=== PATIENT | male | born 1960 | race Caucasian/White ===

== ENCOUNTER 2023-11-27 14:25 | Emergency (ER) | payer OTHER, SELFPAY ==
[2023-11-27] VITALS (9 sets, daily range): BP systolic 79–132; BP diastolic 49–88; PULSE 71–78; RESP 14–15; O2SAT 96–100
--- NOTE | 2023-11-27 14:27 | XR_ITS ---
WS: [id number] PORTABLE CHEST HISTORY: Syncope COMPARISON: None available. Lungs are clear and well expanded. No pleural effusion or pneumothorax. Cardiac size: Normal. Mediastinum/Aorta: Normal mediastinum. No osseous abnormality seen. IMPRESSION: Unremarkable portable chest.
--- NOTE | 2023-11-27 14:27 | CT_ITS ---
WS: [id number] CT HEAD NONCONTRAST HISTORY: Syncope TECHNIQUE: Contiguous axial imaging performed through the brain in 2.5 mm imaging. Bone and soft tiss ue windows. Sagittal and coronal reformats reviewed. All CT scans at [facility] use at least one of these dose optimization techniques: automated exposure control; mA and/or kV adjustment per pa tient size (includes targeted exams where dose is matched to clinical indication); or iterative recon struction. DLP: 1095.48 mGy.cm COMPARISON: None available. No acute intracranial hemorrhage, midline shift or mass effect. Mild volume loss and atrophy. No prior infarct. Ventricles: Normal size with no hydrocephalus. Paranasal sinuses: As visualized are clear. Mastoid air cells: Well pneumatized. Calvarium and scalp: Skull is intact with no soft tissue edema or swelling. IMPRESSION: 1. No acute intracranial hemorrhage or edema. 2. Mild cerebral volume loss. No acute infarct.
--- NOTE | 2023-11-27 14:29 | W.ED.SYNCOPE ---
HPI - Syncope General: Chief Complaint: Dizziness Stated Complaint: syncope Time Seen by Provider: 11/27/23 14:27 History of Present Illness: 63-year-old male presents emergency department stating that he was at work today at the [employer] and then had a sudden episode of passing out. His coworker who was with him and present stated that he passed out for no reason and the work truck and then was difficult to arouse and when he woke up he started having several episodes of vomiting. The patient denies headache, vision changes or chest pain. He is actively vomiting upon arrival to the emergency department. He does endorse generalized weakness. He states he has no past medical history and takes no medications and is not allergic to anything. Associated symptoms: Reports nausea Review of Systems General: Reports: 10 or more systems reviewed and unremarkable except in HPI and below Const: Reports: fatigue and malaise Card: Reports: syncope GI: Reports: nausea and vomiting Physical Exam Narrative: EXAM NARRATIVE: Constitutional: the patient appears well nourished and with normal development. Vital signs reviewed as documented. HENMT: Normocephalic, atraumatic. External ears normal appearance without drainage. Nose without drainage, normal appearance. Mucus membranes moist. Neck is supple, No jugular venous distension, trachea is midline, no appreciable carotid bruits. No lymphadenopathy. No meningeal signs. Flexion, extension and lateral rotation is without pain. Eyes: Pupils are equal, round, reactive to light and accommodation. No scleral icterus. Extra-ocular movement are intact. Thorax is symmetrical and with equal rise and fall with respirations. Resp: Lungs are clear to auscultation. No wheezes, rales, crackles or ronchi at present. Cardio: Regular rate and rhythm. Positive S1, S2. No appreciable murmurs, rubs or gallops. GI: Abdominal exam reveals normal bowel sounds to all quadrants. No organomegaly. No obvious palpable masses noted. No hepatomegally appreciated. Soft, non-tender to palpation. Extremity: Extremities are non-edematous and both femoral and pedal pulses are 2+ and equal bilaterally. Moves all extremities well, sensation in all extremities. Neuro: Alert and oriented x4, person, place, time and situation. Cranial nerves II through XII are grossly intact, there is no focal neurological deficits that I can appreciate at present. Positive for nystagmus. Motor strength in the upper and lower extremities are equal and bilateral 5/5. Psych: Cooperative, calm, normal thought process, appropriate judgment. Skin: No lesions, rashes. No gross abnormalities noted. Back: Symmetrical, no obvious deformity, No CVA tenderness Course Reevaluation(s): Reevaluation #1: Reevaluation the patient demonstrates significant improvement and resolution of his vertigo, nystagmus is nausea has resolved. I did discuss the CT scan findings as well as the MRI findings with the patient and his family members. I discussed follow-up with the ear nose and throat physician the patient is requesting to be discharged home and not admitted to the hospital. I did discuss the risk and possible complications and possible red flags and encouraged him to return to the emergency department for additional evaluation and treatment if symptoms returned. I advised him the importance of follow-up with his primary care provider as well as the ear nose and throat physician for his chronic vertigo. Time: 19:32 Vital Signs: Vital signs: Vital Signs Pulse Rate 77 11/27/23 19:43 Respiratory Rate 14 11/27/23 19:43 Blood Pressure 132/76 11/27/23 19:43 Pulse Oximetry 98 11/27/23 19:43 Oxygen Delivery Me thod Room Air 11/27/23 18:30 MDM - Syncope Medical Decision Making 63-year-old male presents actively vomiting in the emergency department after syncopal episode he denies chest pain or dizziness. I will obtain serial cardiac enzymes and EKG as well as a CBC CMP urinalysis and obtain a CT scan of his head. He has no focal neurological deficits I will provide him Zofran for his nausea and vomiting. Medical Records I reviewed the patient's medical records. Lab Data I reviewed the patient's lab results. 11/27/23 14:34 11/27/23 14:34 Radiology Impressions Abdomen/Pelvis CT 11/27/23 16:27 IMPRESSION: 1. No evidence of acute abnormality in the abdomen or pelvis within limitations of a noncontrast exam. 2. Hepatomegaly and hepatic steatosis. Consider correlation with clinical and laboratory findings for steatohepatitis. 3. Enlarged prostate. Consider correlation with serum laboratory findings and outpatient urologic evaluation. Head MRI 11/27/23 16:56 IMPRESSION: 1. No evidence of acute infarct. Laboratory Results WBC 9.82 10^3/uL (3.29-11.43) 11/27/23 14:34 RBC 4.76 10^6/uL (3.85-5.65) 11/27/23 14:34 Hgb 14.50 g/dL (11.27-16.99) 11/27/23 14:34 Hct 42.2 % (37-53) 11/27/23 14:34 MCV 88.7 fl (82-101) 11/27/23 14:34 MCH 30.5 pg (27-33) 11/27/23 14:34 MCHC 34.4 g/dL (30-55) 11/27/23 14:34 RDW 12.1 % (12.1-15.1) 11/27/23 14:34 Plt Count 244 10^3/cmm (157-399) 11/27/23 14:34 MPV 10.0 fL (7.4-10.4) 11/27/23 14:34 Neut % (Auto) 43.7 % 11/27/23 14:34 Lymph % (Auto) 44.3 % 11/27/23 14:34 [place] % (Auto) 7.6 % 11/27/23 14:34 Eos % (Auto) 3.2 % 11/27/23 14:34 Baso % (Auto) 0.9 % 11/27/23 14:34 Neut # (Auto) 4.29 10^3/uL (1.8-7.7) 11/27/23 14:34 Lymph # (Auto) 4.4 10^3/uL (0.8-4.8) 11/27/23 14:34 [place] # (Auto) 0.8 10^3/uL (0.2-0.9) 11/27/23 14:34 Eos # (Auto) 0.3 10^3/uL (0.0-0.8) 11/27/23 14:34 Baso # (Auto) 0.1 10^3/uL (0.0-0.1) 11/27/23 14:34 Nucleated RBC % (auto) 0 % 11/27/23 14:34 Nucleated RBCs # 0.0 /100WBC 11/27/23 14:34 PT 13.80 SECONDS (12.1-14.9) 11/27/23 14:34 INR 1.03 (0.8-1.2) 11/27/23 14:34 APTT 24.9 SECONDS (23.9-36.7) 11/27/23 14:34 Sodium 139 mmol/L (136-145) 11/27/23 14:34 Potassium 3.1 mmol/L (3.5-5.1) L 11/27/23 14:34 Chloride 101 mmol/L (98-107) 11/27/23 14:34 Carbon Dioxide 20 mmol/L (22-29) L 11/27/23 14:34 Anion Gap 21.1 (5-19) H 11/27/23 14:34 BUN 10 mg/dL (8-23) 11/27/23 14:34 Creatinine 0.8 mg/dL (0.7-1.2) 11/27/23 14:34 GFR Calculation 98.3 mL/min (90-130) 11/27/23 14:34 Glucose 128 mg/dL (65-115) H 11/27/23 14:34 POC Glucose 116 mg/dL (70-110) H 11/27/23 14:29 Calculated Osmolality 289 mOsm/kg (285-295) 11/27/23 14:34 Lactic Acid 5.8 mmol/L (0.5-2.2) H* 11/27/23 14:34 Calcium 9.8 mg/dL (8.5-10.5) 11/27/23 14:34 Total Bilirubin 0.9 mg/dL (0.15-1.2) 11/27/23 14:34 AST 43 U/L (0-40) H 11/27/23 14:34 ALT 49 U/L (0-41) H 11/27/23 14:34 Alkaline Phosphatase 79 U/L (40-130) 11/27/23 14:34 Troponin T Baseline < 6 ng/L (0-15) 11/27/23 14:34 NT-Pro-B Natriuret Pep < 36 pg/mL (0-125) 11/27/23 14:34 Total Protein 7.4 g/dL (6.6-8.7) 11/27/23 14:34 Albumin 4.5 g/dL (3.5-5.2) 11/27/23 14:34 Globulin 2.9 g/dL (1.3-4.6) 11/27/23 14:34 Procalcitonin 0.07 ng/mL (0-0.5) 11/27/23 14:34 Urine Color Yellow (Yellow) 11/27/23 15:49 Urine Appearance Clear (CLEAR) 11/27/23 15:49 Urine pH 7 (5-7) 11/27/23 15:49 Ur Specific [place] 1.005 (1.005-1.030) 11/27/23 15:49 Urine Protein Neg (Negative) 11/27/23 15:49 Urine Glucose (UA) Norm (Normal) 11/27/23 15:49 Urine Ketones Negative (Negative) 11/27/23 15:49 Urine Blood Neg (Negative) 11/27/23 15:49 Urine Nitrate Negative (Negative) 11/27/23 15:49 Urine Bilirubin Neg (Negative) 11/27/23 15:49 Urine Urobilinogen Neg mg/dL (Negative) 11/27/23 15:49 Ur Leukocyte Esterase Negative (Negative) 11/27/23 15:49 Urine Opiates Screen Negative ng/mL (Negative) 11/27/23 15:49 Ur Barbiturates Screen Negative ng/mL (Negative) 11/27/23 15:49 Ur Phencyclidine Scrn Negative ng/mL (Negative) 11/27/23 15:49 Ur Amphetamines Screen Negative ng/mL (Negative) 11/27/23 15:49 U Benzodiazepines Scrn Negative ng/mL (Negative) 11/27/23 15:49 Urine Cocaine Screen Negative ng/mL (Negative) 11/27/23 15:49 U Marijuana (THC) Screen Negative ng/mL (Negative) 11/27/23 15:49 Influenza Type A Ag negative (Negative) 11/27/23 15:22 Influenza Type B Ag negative (Negative) 11/27/23 15:22 SARS-CoV-2 Ag (Rapid) negative (Negative) 11/27/23 15:22 All radiology interpretation(s) finalized by discharge EKG Data EKG 1: Interpretation: Twelve-lead EKG obtained at 1436 and reviewed at 1436 demonstrates sinus rhythm with a ventricular rate of 67 bpm, IA interval 157, QRS duration 105, QT 437, QTc [address] elevation or depression to demonstrate acute ischemia or infarction at present. EKG 2: Interpretation: Twelve-lead EKG obtained at 1629 reviewed 1634 demonstrates sinus rhythm with a ventricular rate of 78 bpm, IA interval 160, QRS duration 92, QT 413, QTc [address] elevation or depression to demonstrate acute ischemia or infarction at present. Critical Care Time Critical Care Time: Critical Care Time: Yes Total Critical Care Time: 85 Attestation: The patients was emergently evaluated as this patient's presentation and case had a high probability of a clinically significant, sudden, or life threatening deterioration of this patient's initial critical presentation or condition which required my full and direct attention, intervention and personal management. Discharge Plan Discharge Patient Disposition: Home Clinical Impression: Syncope and collapse, Acute hypokalemia, Acute hypotension, Vertigo Nausea & vomiting Qualifiers: Vomiting type: unspecified Qualified Code(s): R11.2 - Nausea with vomiting, unspecified Condition: Stable Prescriptions: New meclizine 25 mg tablet 25 mg PO BID PRN (Reason: dizziness) Qty: 30 0RF ondansetron HCl 4 mg tablet 4 mg PO Q8H PRN (Reason: nausea and vomiting) Qty: 20 0RF Discharge Orders: Discharge ED (Routine); Ordered 11/27/23 Ordered By: Jay Hopson Referrals: Dillon Birch MD [Family Provider] - Discharge Diet: Advance as tolerated Discharge Activity: Resume usual activity Patient Instructions: Opioid Safety, Pain Management Activity Restrictions/Additional Instructions: Activity Restrictions/Additional Instructions: Thank you for choosing [facility] for your healthcare needs today. Please realize that you were seen in the Emergency Department and that we are providing you with an emergency medical screening exam and this may not be a complete and all inclusive of all the testing and or medical work-up that you may need to determine your ailment or severity of your illness. It is very important that you follow-up as instructed with your Primary care provider or Specialist for additional evaluation and to discuss your medical treatment plan. You may return to the Emergency Department should you have concerns or if your condition changes or worsens in any way. Coding Level of Care Code ED Dermatological Surgeon for Jaja Roy
--- NOTE | 2023-11-27 14:36 | ECG_ITS ---
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 Measurements Intervals [place] Rate: 67 P: 82 ME: 157 QRS: -27 QRSD: 105 T: 55 QT: 437 QTc: 463 Interpretive Statements SINUS RHYTHM BORDERLINE LEFT AXIS DEVIATION [QRS AXIS < -20] INCOMPLETE RIGHT BUNDLE BRANCH BLOCK [90+ ms QRS DURATION, TERMINAL R IN V1/V2, 40+ ms S IN I/aVL/V4/V5/V6] No previous ECG available for comparison Electronically Signed On 11-27-2023 16:33:24 CHEMIC MANGLER by Nash Holt M.D. [id number]
[2023-11-27] MEDS: ondansetron 2 mg/ML SDV 2 mL 4 MG IVP (14:38)
[2023-11-27] MEDS: sodium chloride 0.9% 1,000 ML 999 ML IV ×3 (14:39→16:09)
[2023-11-27 14:41] LABS: Basophils # 0.1 10^3/uL (0.0-0.1); Basophils % 0.9 %; Eosinophils # 0.3 10^3/uL (0.0-0.8); Eosinophils % 3.2 %; Hematocrit 42.2 % (37-53); Lymphocytes # 4.4 10^3/uL (0.8-4.8); Lymphocytes % 44.3 %; Mean Corpuscular HGB Conc 34.4 g/dL (30-55); Mean Corpuscular Hemoglobin 30.5 pg (27-33); Mean Corpuscular Volume 88.7 fl (82-101); Monocytes # 0.8 10^3/uL (0.2-0.9); Monocytes % 7.6 %; Neutrophils # 4.29 10^3/uL (1.8-7.7); Neutrophils % 43.7 %; Nucleated Red Blood Cells % 0 %; Platelet Count 244 10^3/cmm (157-399); Red Blood Count 4.76 10^6/uL (3.85-5.65); Red Cell Distribution Width 12.1 % (12.1-15.1); White Blood Count 9.82 10^3/uL (3.29-11.43)
--- NOTE | 2023-11-27 14:42 | CT_ITS ---
WS: [id number] CT ANGIOGRAM CEREBRAL AND CAROTID ARTERIES HISTORY: AMS/Syncope TECHNIQUE: CT angiogram is performed of the carotid and cerebral arteries. During arterial injection imaging is obtained from the skull vertex to the aortic arch in 1.25 mm imaging. Coronal and sagittal reformats are submitted. Additional multi planar reformats of the carotid and cerebral arteries are submitted, MIP imaging also reviewed. NASCET criteria utilized. All CT scans at [facility] us e at least one of these dose optimization techniques: automated exposure control; mA and/or kV adjust ment per patient size (includes targeted exams where dose is matched to clinical indication); or iter ative reconstruction. CONTRAST: Omnipaque 350; 100 mL IV. DLP: 528.50 mGy.cm COMPARISON: None available. Carotid Angiogram: Right carotid: Common carotid artery: Arises normally from the innominate artery. No significant plaque or stenosis. Internal carotid artery: No plaque or stenosis. External carotid artery: Patent. Left carotid: Common carotid artery: Arises normally from the aorta. No significant plaque or stenosis. Internal carotid artery: No plaque or stenosis. External carotid artery: Patent. Right vertebral artery: Unremarkable. Left vertebral artery: Unremarkable. Arises normally from the subclavian artery. Subclavian arteries: No stenosis or significant abnormality. Upper thorax: Normal. Thyroid gland: Bilateral thyroid nodules. Osseous structures: Unremarkable. CEREBRAL ANGIOGRAM: Intracranial vertebral arteries: Normal with no significant atherosclerosis. Basilar artery: No significant stenosis or occlusion. No aneurysm. Intracranial Internal carotid arteries: Demonstrates no significant stenosis or plaque. Middle cerebral arteries: Normal. Anterior cerebral arteries and ACOM: Normal. Posterior cerebral arteries and PCOM's: Hypoplastic LEFT posterior communicating artery. Posterior ce rebral arteries are normal. Dural venous sinuses are normally enhancing. Mastoid air cells: Normal. Paranasal sinuses: Normal. Calvarium: Normal. IMPRESSION: 1. Normal carotid arteries. 2. Unremarkable [place]. No aneurysms or occlusions.
--- NOTE | 2023-11-27 14:42 | CT_ITS ---
WS: [id number] CT CHEST ANGIOGRAPHY WITH REFORMATS HISTORY: Syncope/AMS TECHNIQUE: Contiguous axial images are obtained through the chest during arterial injection of intrav enous contrast. Images are reconstructed to evaluate the pulmonary arteries. MIP imaging also reviewe d. All CT scans at [facility] use at least one of these dose optimization techniques: automat ed exposure control; mA and/or kV adjustment per patient size (includes targeted exams where dose is matched to clinical indication); or iterative reconstruction. CONTRAST: Omnipaque 350; 100 mL IV. DLP: 502.02 mGy.cm COMPARISON: None available. Good opacification of the pulmonary artery. No filling defects or pulmonary embolism. Normal aorta. N ormal heart. No pericardial or pleural effusion. Small mediastinal and hilar lymph nodes. No adenopat hy. Mildly prominent lymph nodes in the hilar regions is likely reactive. Lungs are clear. No pneumonia. No pneumothorax. Hepatic steatosis. No adrenal mass. Small hiatal hernia. No osseous destruction. IMPRESSION: 1. No pulmonary embolism. 2. No pneumonia. 3. Mildly prominent reactive mediastinal and hilar lymph nodes. 4. No pneumothorax.
[2023-11-27 14:54] LABS: Glucose Point of Care 116 mg/dL (70-110)
[2023-11-27 14:56] LABS: INR 1.03 (0.8-1.2)
[2023-11-27 14:57] LABS: Partial Thromboplastin Time 24.9 SECONDS (23.9-36.7)
[2023-11-27 14:58] LABS: Lactic Sepsis W/Reflex 5.8 mmol/L (0.5-2.2)
[2023-11-27 14:59] LABS: Troponin(5th) Baseline < 6 ng/L (0-15)
[2023-11-27 15:06] LABS: NT Pro B Type Natriuretic Pept < 36 pg/mL (0-125); Procalcitonin 0.07 ng/mL (0-0.5)
--- NOTE | 2023-11-27 15:08 | PC.NURSE ---
this nurse spoke with , Shannen Acosta. updated of patient status, no further questions. pts states she will arrive @ approx 1530.
[2023-11-27 15:18] LABS: Alanine Aminotransferase 49 U/L (0-41); Albumin Level 4.5 g/dL (3.5-5.2); Alkaline Phosphatase 79 U/L (40-130); Anion Gap 21.1 (5-19); Aspartate Amino Transferase 43 U/L (0-40); Blood Urea Nitrogen 10 mg/dL (8-23); Calcium 9.8 mg/dL (8.5-10.5); Carbon Dioxide 20 mmol/L (22-29); Chloride 101 mmol/L (98-107); Globulin 2.9 g/dL (1.3-4.6); Glomerular Filtration Rate 98.3 mL/min (90-130); Glucose 128 mg/dL (65-115); Osmolality Calculated 289 mOsm/kg (285-295); Potassium 3.1 mmol/L (3.5-5.1); Sodium 139 mmol/L (136-145); Total Bilirubin 0.9 mg/dL (0.15-1.2); Total Protein 7.4 g/dL (6.6-8.7)
[2023-11-27] MEDS: iohexol 350 mg/mL 500 mL Btl (per mL) IV ×2 (15:23→15:33)
[2023-11-27 15:55] LABS: Add Urine Microscopic? NO; Charge for UA Resulting for Rev
[2023-11-27 16:06] LABS: Influenza A by IFA negative (Negative); Influenza B by IFA negative (Negative); SARS Covid-2 Antigen negative (Negative)
[2023-11-27 16:08] LABS: Bilirubin Urine Neg (Negative); Blood Urine Neg (Negative); Glucose Urine UA Norm (Normal); Ketones Urine Negative (Negative); Leukocyte Esterase Urine Negative (Negative); Nitrate Urine Negative (Negative); Protein Urine Neg (Negative); Specific Gravity, Urine 1.005 (1.005-1.030); Urine Appearance Clear (CLEAR); Urine Color Yellow (Yellow); Urobilinogen Urine Neg (Negative); pH Urine 7 (5-7)
[2023-11-27 16:24] LABS: Reflex Lactate Order REFLEX LACTIC ORDERD
--- NOTE | 2023-11-27 16:27 | CTR_ITS ---
PROCEDURE INFORMATION: Exam: CT Abdomen And Pelvis Without Contrast Exam date and time: 11/27/2023 4:51 PM Age: 63 years old Clinical indication: Abdominal tenderness; Additional info: Abd pain TECHNIQUE: Imaging protocol: Computed tomography of the abdomen and pelvis without contrast. Radiation optimization: All CT scans at this facility use at least one of these dose optimization techniques: automated exposure control; mA and/or kV adjustment per patient size (includes targeted exams where dose is matched to clinical indication); or iterative reconstruction. COMPARISON: CT angio chest PE protcl [id number] 11/27/2023 3:03 PM RADIATION DOSE METRICS: Total DLP (mGy-cm): 286.26 FINDINGS: Lungs: Subsegmental bibasilar atelectasis. The visualized lung bases are otherwise clear. Diaphragm: No evidence of diaphragmatic defect. Liver: Hepatomegaly and hepatic steatosis with the right lobe measuring up to 19.5 cm. Gallbladder and bile ducts: Gallbladder is unremarkable. No evidence of intra-hepatic or extra-hepatic biliary dilatation. Pancreas: Grossly unremarkable. Spleen: Grossly unremarkable. Adrenal glands: Grossly unremarkable. Kidneys and ureters: No gross renal parenchymal abnormality. There is excreted contrast in the renal collecting systems related to recent CT angiography of the chest. No evidence of hydronephrosis or ureteral stone. Stomach and bowel: No evidence of bowel obstruction or perienteric inflammatory changes. Appendix: Normal appendix. Intraperitoneal space: No evidence of free air or fluid collection. Vasculature: No evidence of aneurysmal dilitation of abdominal aorta. Lymph nodes: No evidence of adenopathy. Urinary bladder: Distended with excreted contrast related to recent contrast administration. Otherwise grossly unremarkable. Reproductive: Enlarged prostate measuring 5.8 cm. Consider correlation with serum laboratory findings and outpatient urologic evaluation. Bones/joints: No evidence of acute fracture or aggresive osseous lesion. Soft tissues: No evidence of fluid collection or hematoma in the superficial soft tissues. CT/CT abdomen pelvis wo con [id number] IMPRESSION: 1. No evidence of acute abnormality in the abdomen or pelvis within limitations of a noncontrast exam. 2. Hepatomegaly and hepatic steatosis. Consider correlation with clinical and laboratory findings for steatohepatitis. 3. Enlarged prostate. Consider correlation with serum laboratory findings and outpatient urologic evaluation.
--- NOTE | 2023-11-27 16:28 | ECG_ITS ---
[facility] Test Date: 2023-11-27 Pat Name: Ellis Acosta Department: Room: Gender: Male Patient Scheduler: : 1960 Requested By: Jay Hopson Order Number: [id number] Lavern MD: Nash Holt M.D. Measurements Intervals [place] Rate: 78 P: 80 IA: 160 QRS: -54 QRSD: 92 T: 56 QT: 413 QTc: 470 Interpretive Statements SINUS RHYTHM LEFT AXIS DEVIATION [QRS AXIS < -30] INCOMPLETE RIGHT BUNDLE BRANCH BLOCK [90+ ms QRS DURATION, TERMINAL R IN V1/V2, 40+ ms S IN I/aVL/V4/V5/V6] Compared to ECG 11/27/2023 14:36:35 No significant changes Electronically Signed On 11-27-2023 16:34:03 DEPUTY CHIEF COUNSEL by Nash Holt M.D. [id number]
[2023-11-27 16:41] LABS: Amphetamines Screen Urine Negative (Negative); Barbiturates Screen Urine Negative (Negative); Benzodiazepines Screen Urine Negative (Negative); Cocaine Screen Urine Negative (Negative); Opiate Screen Urine Negative (Negative); PCP Screen Urine Negative (Negative); THC Screen Urine Negative (Negative)
--- NOTE | 2023-11-27 16:56 | MRR_ITS ---
PROCEDURE INFORMATION: Exam: MR Head Without Contrast Exam date and time: 11/27/2023 5:25 PM Age: 63 years old Clinical indication: Dizziness; Additional info: Dizziness, vomitting, extreme vertigo, hypotension, R/O posterior circulation stroke. Posterior TECHNIQUE: Imaging protocol: Magnetic resonance imaging of the head without contrast. COMPARISON: CT angio headneck* [id number] 11/27/2023 2:56 PM FINDINGS: Brain: The miller-white matter signal is unremarkable. No evidence of diffusion restriction to suggest acute ischemia. No mass effect or midline shift. Cerebral ventricles: No hydrocephalus. Bones/joints: Grossly unremarkable. Paranasal sinuses: The visualized paranasal sinuses are well aerated. Mastoid air cells: The mastoids and middle ears are grossly clear without evidence of effusion. Orbital cavities: The visualized orbits are unremarkable. Soft tissues: Grossly unremarkable.] MR/MR head wo con* [id number] IMPRESSION: 1. No evidence of acute infarct.
--- NOTE | 2023-11-27 17:42 | P.CONIM_ITS ---
Providers/Reason For Consult 2 Consulting Physician/Specialty*: Internal Medicine/Cristy MD Ashley Reason for Consult*: Dizziness, hypotension History of Present Illness History of Present Illness Ellis Acosta is a 63 year old male with no significant past medical history other than vertigo episode 6 years ago presented to the hospital today from work with complaint of dizziness nausea vomiting. He was basically in a car as a passenger and had sudden onset intractable vomiting nausea and felt like he was going to pass out. He was immediately brought to the ER. On arrival to ER blood pressure 71/40. He had to be taken out of the truck and brought inside. He was slumped over unresponsive too weak to get out of the truck. Immediately he was given IV fluids. He received 2 L normal saline bolus. Repeat blood pressure 79/49. No Levophed started however subsequently blood pressure did come up to 111/70. CT head obtained which was negative for any acute pathology or hemorrhage. 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 CT angio PE protocol obtained to rule out a PE. He was never hypoxic. Hospitalist was called to admit. I saw patient in ER room 10. He was unable to open his eyes fully as he was dizzy every time he tried to do so. He was able to track my finger however when doing so he felt dizzy. He could not move his head [id number] as he would feel dizzy. He said he was also feeling nauseous as he was trying to do so. Patient did have a bilateral superior quadrantanopia, [id number] abnormal. No dysdiadochokinesia. Cranial nerves tested otherwise grossly okay. Strength bilateral lower extremity 5 out of 5, strength bilateral lower extremity 5 out of 5. Gait not tested as patient stated he cannot even open his eyes let alone get up at this time. Family at bedside Medications/Allergies Home Medications Medication Instructions Recorded Confirmed Last Taken Type No Known Home Medications 11/27/23 11/27/23 Unknown History Allergies Allergy/AdvReac Type Severity Reaction Status Date / Time codeine Allergy Unknown Verified 11/27/23 15:20 Vitals/I&O/Wt Last Vital Signs Pulse 76 11/27/23 17:00 Resp 15 11/27/23 14:40 BP 130/73 11/27/23 17:00 Pulse Ox 100 11/27/23 17:00 O2 Del Method Room Air 11/27/23 17:00 11/27/23 11/27/23 11/27/23 06:59 14:59 22:59 Intake Total 1000 / 1000 Balance 1000 / 1000 Weight last 48 hrs Weight 96.162 kg Physical Exam 2 Narrative: Normal S1-S2 Neck no acute distress Seen laying in bed with eyes closed Normal saline running Heart rate normal rate rhythm Abdomen soft nontender Strength upper extremities 5 out of 5, strength lower extremities 5 out of 5 He was unable to open his eyes fully as he was dizzy every time he tried to do so. He was able to track my finger however when doing so he felt dizzy. He could not move his head [id number] as he would feel dizzy. He said he was also feeling nauseous as he was trying to do so. Patient did have a bilateral superior quadrantanopia, [id number] abnormal. No dysdiadochokinesia. Cranial nerves tested otherwise grossly okay. Strength bilateral lower extremity 5 out of 5, strength bilateral lower extremity 5 out of 5. Gait not tested as patient stated he cannot even open his eyes let alone get up at this time. Data 11/27/23 14:34 11/27/23 14:34 A&P Assessment and plan (1) Acute hypotension: (2) Acute hypokalemia: (3) Nausea & vomiting: Qualifiers: Vomiting type: unspecified Qualified Code(s): R11.2 - Nausea with vomiting, unspecified (4) Syncope and collapse: (5) Stroke: (6) Dizziness: (7) Left homonymous superior quadrantanopia: (8) Right homonymous superior quadrantanopia: Plan #Sudden onset intractable nausea vomiting #Dizziness/vertigo #History of vertigo with a one-time instance of 6 years ago #Posterior circulation stroke?? ? Patient denies drugs, alcohol ? Presented with intractable nausea vomiting dizziness. He states he did have vertigo 6 years ago and was given meclizine most likely but he felt okay. He was recommended an MRI but never got it done. He has been fine since then. ? He states he was sitting when this suddenly started. Denies ill contacts, denies recent illness of any sort ? He does say he could not get up or walk at all. He also experienced bilateral lower extremity weakness at time. ? Family present at bedside. Family and the patient both state no matter what happens and even if this is a stroke they will not want to see Dr. Rogel. They are requesting for Dr. Maxwell who is not on-call today. ? We have talked with the patient and family and they would like to be transferred to a higher level of care another hospital where neurology service would be available. Labs have been reviewed. Lactic acid 5.8 most likely secondary to low blood pressure episodes. I recommend continue normal saline infusion at 125 cc/h at this time. Repeat lactic acid in 3 hours. ? Watch for neurological symptoms. Neurochecks. There is possibility of watershed area stroke with that low blood pressure. ? We will get a stat MRI without contrast to rule out posterior circulation stroke at this time. ? Dr. Hopson under taking discussion with the family regarding potential of TNKase as patient's last known well was 215. It is 530 at this time and he is still within the 4.5-hour window of administration. Family deciding on administration for now. ? If he truly does have a thrombus large enough he may be a candidate for thrombectomy and neurosurgical intervention. ? At this time we do have neurology available however patient does not want to see this particular doctor on-call. Therefore I would recommend since patient actively has symptoms we recommend to transfer him to higher level of care to a neuro stroke center. ? Family and ER doctor agrees with the plan at this time. ? CT abdomen pelvis pending at this time. -I have recommended we call the rads to expedite read on the MRI head. Full code DVT prophylaxis: SCDs for now Thank you for involving me in the patient's care. All questions answered to the family satisfaction. Consult Attestations 2 Medical Necessity Statement: Patient will be transferred to higher level of care to neurology stroke center. Critical Care Time: The high probability of a clinically significant, sudden or life threatening deterioration of the patient's [] system(s) required my full and direct attention, intervention and personal management. The critical care time is as shown. This time is in addition to time spent performing any reported procedures but includes the following: [x] Data and vital sign review and interpretation [x] Patient assessment, examination and intervention [x] Documentation [x] Medication orders and management Critical Care Time (min):70 Coding Level of Care Code Acute Code for Chg Fwd Diagnoses Acute hypotension I95.9 Acute hypokalemia E87.6 Nausea & vomiting R11.2 Vomiting type: unspecified Syncope and collapse R55 Stroke I63.9 Dizziness R42 Left homonymous superior quadrantanopia H53.462 Right homonymous superior quadrantanopia H53.461
[2023-11-27] MEDS: meclizine 25 mg tablet 50 MG PO (18:50)
[2023-11-27] MEDS: potassium chloride ER 20 mEq Tablet 40 MEQ PO (19:44)
== END 2023-11-27 19:57 | disposition home or self-care (01) ==
PROVIDERS: Emergency Provider Internal Medicine; Family Provider Family Medicine
DX: R55 Syncope and collapse (principal); E87.6 Hypokalemia; I95.9 Hypotension, unspecified; R42 Dizziness and giddiness; R11.2 Nausea with vomiting, unspecified; Z11.52 Encounter for screening for COVID-19
CPT/HCPCS: 36416; 70450; 70496; 70498; 70551; 71045; 71275; 74176; 80053; 80306; 81003; 82962; 83605; 83880; 84145; 84484; 85025; 85610; 85730; 87426; 87804; 93005; 96361; 96374; 99285; J2405; J7030; J8597; Q9967

== ENCOUNTER → 2023-12-02 09:37 | Outpatient (BNVA) | payer OTHER, SELFPAY | PROVIDERS: Family Provider Family Medicine; PCP Family Medicine; Visit Provider Family Medicine | DX: E87.6 Hypokalemia (principal); Z51.81 Encounter for therapeutic drug level monitoring; R79.89 Other specified abnormal findings of blood chemistry; N40.0 Benign prostatic hyperplasia without lower urinary tract symptoms; R07.9 Chest pain, unspecified | CPT/HCPCS: 80053; 83605; 83735; 84153 ==

== ENCOUNTER → 2024-10-14 08:38 | Outpatient (BNVA) | payer OTHER, SELFPAY | PROVIDERS: Family Provider Family Medicine; PCP Family Medicine; Visit Provider Family Medicine | DX: Z00.00 Encounter for general adult medical examination without abnormal findings (principal); Z51.81 Encounter for therapeutic drug level monitoring; Z13.220 Encounter for screening for lipoid disorders; Z12.11 Encounter for screening for malignant neoplasm of colon | CPT/HCPCS: 80053; 80061; 83735; 84153; 85025 ==